=== PATIENT | female | born 1995 | race Two or more races ===

== ENCOUNTER 2017-03-22 23:10 | Outpatient (CLI) | payer SELFPAY ==
[~2017-03-22] VITALS: Ht 154.9 cm; Wt 59.4 kg
[2017-03-22 23:32] VITALS: BP 124/68
[2017-03-23 00:27] LABS: MICROSCOPIC INDICATED
== END 2017-03-23 00:20 | disposition home or self-care (01) ==
LOC: LDOP 23:10
PROVIDERS: ATTEND Obstetrics & Gynecology Gynecology
DX: O26.893 Other specified pregnancy related conditions, third trimester (principal); R10.9 Unspecified abdominal pain
CPT/HCPCS: 59025; 81001; 87086; 99201; G0463

== ENCOUNTER 2017-03-23 06:09 | Inpatient (IN) | payer MEDICAID, OTHER ==
[~2017-03-23] VITALS: Ht 154.9 cm; Wt 59.5 kg
[2017-03-23 06:12] VITALS: BP 111/59
[2017-03-23] MEDS: D5%-LACTATED RINGERS 1,000 ML IV SCH ×2 (06:22→14:22)
[2017-03-23] MEDS ORDERED: OXYTOCIN 30U/ 0.9% NaCL 500ML 500 ML IV ONE (06:22)
[2017-03-23] MEDS ORDERED: NEWBORN KIT ONE (06:25)
[2017-03-23] MEDS ORDERED: FENTANYL PF 100 MCG/2ML ONE ×3 (06:25→11:04)
[2017-03-23] MEDS ORDERED: OXYTOCIN 30U/ 0.9% NaCL 500ML 500 ML ONE ×2 (06:26→15:25)
[2017-03-23] MEDS ORDERED: ONDANSETRON 2MG/ML, 2ML IVPush PRN (06:30)
[2017-03-23] MEDS ORDERED: FENTANYL PF 100 MCG/2ML IVPush PRN (06:30)
[2017-03-23] MEDS ORDERED: CALCIUM CARBONATE 500 MG TAB.CHEW PO PRN (06:30)
[2017-03-23] MEDS: LACTATED RINGERS 1,000 ML IV SCH ×2 (06:40→14:22)
[2017-03-23 06:51] LABS: BASOPHILS # (AUTO) 0.03 x10^3/uL (0-0.3); BASOPHILS % (AUTO) 0 % (0-1); EOSINOPHILS # (AUTO) 0.03 x10^3/uL (0-0.8); EOSINOPHILS % (AUTO) 0 % (1-7); LYMPHOCYTES # (AUTO) 1.65 x10^3/uL (1-6.1); LYMPHOCYTES % (AUTO) 14 % (22-44); MD NO; MEAN CORPUSCULAR HEMOGLOBIN 28.6 pg (27.0-34.8); MEAN CORPUSCULAR VOLUME 84.2 fL (80-100); MEAN PLATELET VOLUME 9.1 fL (7.4-10.4); MONOCYTES # (AUTO) 0.53 x10^3/uL (0-1.4); MONOCYTES % (AUTO) 5 % (2-9); NEUTROPHILS % (AUTO) 81 % (42-75); PLATELET COUNT 264 x10^3/uL (130-400); RED BLOOD COUNT 4.27 x10^6/uL (3.82-5.3); RED CELL DISTRIBUTION WIDTH 13.1 % (9.6-15.2)
[2017-03-23] MEDS: FENTANYL PF 100 MCG/2ML IV PRN ×2 (08:36→10:04)
[2017-03-23] MEDS ORDERED: FENTANYL/BUPIV./NS/PF 250 ML EPIDCONT SCH (10:54)
[2017-03-23] MEDS ORDERED: LACTATED RINGERS 1,000 ML IV SCH (10:54)
[2017-03-23] MEDS ORDERED: LACTATED RINGERS 1,000 ML IVBOLUS PRN (11:00)
[2017-03-23] MEDS ORDERED: BUPIVACAINE 0.25% ONE (11:04)
[2017-03-23] MEDS ORDERED: FENTANYL/BUPIV./NS/PF 250 ML EPIDCONT ONE (11:04)
[2017-03-23] MEDS ORDERED: LIDOCAINE 1%, 10ML ONE (12:04)
[2017-03-23] MEDS ORDERED: MISOPROSTOL 200 MCG TABLET ONE (12:04)
[2017-03-23] MEDS ORDERED: ONDANSETRON 2MG/ML, 2ML IV PRN (12:30)
[2017-03-23] MEDS ORDERED: IBUPROFEN 600 MG TABLET PO PRN (12:30)
[2017-03-23] MEDS ORDERED: MISOPROSTOL 200 MCG TABLET PR PRN (12:30)
[2017-03-23] MEDS ORDERED: DOCUSATE 100 MG CAPSULE PO PRN (12:30)
[2017-03-23] MEDS ORDERED: OXYcodone/APAP 5/325MG TABLET PO PRN ×2 (12:30)
[2017-03-23] MEDS: OXYTOCIN 30U/ 0.9% NaCL 500ML 500 ML IV SCH ×2 (15:41→22:29)
[2017-03-23 16:00] VITALS: BP 105/62
[2017-03-23 16:35] VITALS: BP 107/61
[2017-03-23] MEDS ORDERED: DIPH,PERTUSS(ACELL),TET VAC/PF NC IM-VACC ONE (17:30)
[2017-03-23 19:30] VITALS: BP 103/61
[2017-03-23 20:55] LABS: BASOPHILS # (AUTO) 0.02 x10^3/uL (0-0.3); BASOPHILS % (AUTO) 0 % (0-1); EOSINOPHILS # (AUTO) 0.07 x10^3/uL (0-0.8); EOSINOPHILS % (AUTO) 1 % (1-7); LYMPHOCYTES # (AUTO) 1.84 x10^3/uL (1-6.1); LYMPHOCYTES % (AUTO) 14 % (22-44); MD NO; MEAN CORPUSCULAR HEMOGLOBIN 28.8 pg (27.0-34.8); MEAN CORPUSCULAR HGB CONC 33.8 g/dL (32.4-35.8); MEAN CORPUSCULAR VOLUME 85.2 fL (80-100); MEAN PLATELET VOLUME 9.1 fL (7.4-10.4); MONOCYTES # (AUTO) 0.93 x10^3/uL (0-1.4); MONOCYTES % (AUTO) 7 % (2-9); NEUTROPHILS # (AUTO) 9.89 x10^3/uL (1.8-8.0); NEUTROPHILS % (AUTO) 78 % (42-75); PLATELET COUNT 253 x10^3/uL (130-400); RED BLOOD COUNT 3.97 x10^6/uL (3.82-5.3); RED CELL DISTRIBUTION WIDTH 13.1 % (9.6-15.2)
[2017-03-24 00:40] VITALS: BP 120/75
[2017-03-24 04:40] VITALS: BP 111/75
[2017-03-24 08:29] VITALS: BP 109/70
[2017-03-24] MEDS: OXYTOCIN 30U/ 0.9% NaCL 500ML 500 ML IV SCH ×2 (08:29→18:29)
[2017-03-24] MEDS ORDERED: PRENATAL VIT/IRON/FA 1 EACH TABLET PO SCH (09:00)
[2017-03-24 19:20] VITALS: BP 106/66
[2017-03-25 08:00] VITALS: BP 94/58
[2017-03-25] MEDS ORDERED: IBUP-1222 PO (11:40)
== END 2017-03-25 12:15 | disposition home or self-care (01) | DRG 775 ==
LOC: LDOP 06:09 → LDIP 06:23 → 2NW 15:54
PROVIDERS: ADMIT Obstetrics & Gynecology Gynecology; ATTEND Obstetrics & Gynecology Gynecology
PROC: 3E0R3BZ Introduction of Anesthetic Agent into Spinal Canal, Percutaneous Approach (ICD-10-PCS; principal; 2017-03-23)
PROC: 10E0XZZ Delivery of Products of Conception, External Approach (ICD-10-PCS; 2017-03-23)
PROC: 00HU33Z Insertion of Infusion Device into Spinal Canal, Percutaneous Approach (ICD-10-PCS; 2017-03-23)
PROC: 0HQ9XZZ Repair Perineum Skin, External Approach (ICD-10-PCS; 2017-03-23)
DX: O77.0 Labor and delivery complicated by meconium in amniotic fluid (principal); O70.0 First degree perineal laceration during delivery; Z37.0 Single live birth; Z3A.38 38 weeks gestation of pregnancy
CPT/HCPCS: 36415; 85025; 86850; 86900; 90715; J3010; J3490; J2590; J7120